=== PATIENT | male | born 1950 | race Caucasian/White ===

== ENCOUNTER 2018-05-29 06:44 | Day surgery (SDC) | payer MEDICARE, OTHER, SELFPAY ==
[2018-05-17 09:32] VITALS: BMI 27.1
[2018-05-29 07:02] VITALS: BP 115/81; PULSE 54; RESP 16; TEMP 36.3; O2SAT 100; BMI 23.1
--- NOTE | 2018-05-29 08:00 | COLBX_PTH ---
PATIENT: KIM BLAKE LOC: EN U#:[id number] AGE/SX: 67/M ROOM: RE05/29/[address]: Dr. Don Parish MD : 1950 BED: DIS: 05/29/2018 SPEC #: [id number] RECD: 05/29/18 08:30 STATUS: NACHO MAGGY #: [id number] SAMARIA: 05/29/18 08:[address]: Don Parish DEPT: SURGICAL PATHOLOGY RECD BY: Yaron Dolan ENTERED: 05/29/18 09:57 SP TYPE: COLON BX OTHR DR: [facility] Tissues: A - Descending colon B - Sigmoid colon biopsy Procedures: Surgery Specimen Level IV HEADER OPERATION: Colonoscopy (MAC) PRE-OP DIAGNOSIS: Personal history of colonic polyps TISSUE SUBMITTED: A - Biopsy of descending colon polyp, B - Biopsy of sigmoid colon polyp MICROSCOPIC DIAGNOSIS A. Descending colon polyp, biopsy: Tubular adenoma. B. Sigmoid colon polyp, biopsy: Tubular adenoma. AM:karina 05/30/18 MICROSCOPIC DESCRIPTION Slides are reviewed. GROSS DESCRIPTION A - Received in fixative is one container labeled with the patient's name and designated biopsy of descending colon polyp. The specimen consists of two irregular fragments of light goodman soft tissue that in aggregate measure 0.8 x 0.4 x 0.1 cm. The specimen is totally submitted in one cassette. B - Received in fixative is one container labeled with the patient's name and designated biopsy of sigmoid colon polyp. The specimen consists of one irregular fragment of light goodman soft tissue that measures 0.3 x 0.3 x 0.1 cm. The specimen is totally submitted in one cassette. / SJ:karina 05/29/18 TC:5 CPT: 03691 x2
[2018-05-29 08:15] VITALS: BP 115/81; BP 88/61; PULSE 57; RESP 16; TEMP 36.4; O2SAT 100
--- NOTE | 2018-05-29 08:15 | OP.ENDO_ITS ---
05/29/2018 [facility] Re : Colonoscopy procedure for Clay Malik [facility] This procedure was performed on Tuesday, May 29, 2018. My impressions and recommendations are as follows: Impressions : - One 5 mm polyp in the sigmoid colon, removed with a jumbo cold forceps. Resected and retrieved. - Two 4 to 6 mm polyps in the descending colon, removed with a jumbo cold forceps. Resected and retrieved. - The examination was otherwise normal. Recommendations : - Discharge patient to home. - Resume previous diet. - Continue present medications. - Await pathology results. - Repeat colonoscopy in 3 years for surveillance. - Return to my office in 1 week. My findings are described in the full procedure note, which is enclosed. If I can be of further assistance, please feel free to contact me at Doctor phone number(s): , Fax: [phone], Work: . Sincerely, MD Don Abbott MD 05/29/2018 8:15:18 AM This report has been signed electronically.
[2018-05-29 08:20] VITALS: BP 115/81; BP 88/66; PULSE 57; RESP 16; O2SAT 99
[2018-05-29 08:25] VITALS: BP 102/76; BP 115/81; PULSE 58; RESP 16; O2SAT 100
[2018-05-29 08:30] VITALS: BP 100/76; BP 115/81; PULSE 58; RESP 16; TEMP 36.9; O2SAT 100
[2018-05-29 09:15] VITALS: BP 115/81
== END 2018-05-29 09:16 | disposition home or self-care (01) ==
LOC: EN 06:45 → AC 06:46
PROVIDERS: Referring Provider Surgery; Visit Provider Surgery
PROC: 0DJD8ZZ Inspection of Lower Intestinal Tract, Via Natural or Artificial Opening Endoscopic (ICD-10-PCS; CPT 45378; principal; 2018-05-29 07:55)
DX: Z12.11 Encounter for screening for malignant neoplasm of colon (principal); K63.5 Polyp of colon; I10 Essential (primary) hypertension; I48.91 Unspecified atrial fibrillation; E78.00 Pure hypercholesterolemia, unspecified; M19.90 Unspecified osteoarthritis, unspecified site; Z79.01 Long term (current) use of anticoagulants; Z79.899 Other long term (current) drug therapy; Z86.010 Personal history of colon polyps; Z87.891 Personal history of nicotine dependence
CPT/HCPCS: 45380; 88305; J7120; J1610

== ENCOUNTER 2019-11-15 08:52 | Emergency (ER) | payer MEDICARE, OTHER, SELFPAY ==
[2019-11-15 08:53] VITALS: BP 133/86; PULSE 59; RESP 17; TEMP 36.1; O2SAT 99; BMI 25.4
--- NOTE | 2019-11-15 09:08 | CT_ITS ---
STUDY: CT BRAIN WITHOUT CONTRAST REASON FOR EXAM: Male, 69 years old. PT STATED DIZZINESS TODAY, HX HTN RADIATION DOSAGE (If Supplied By Facility): CTDIvol = ( 44.99 ) mGy, DLP = ( 812.98 ) mGycm TECHNIQUE: Transaxial CT imaging of the brain was performed without administration of intravenous contrast material. Individualized dose optimization techniques were used for this CT. COMPARISON: No relevant priors. FINDINGS: Normal soft tissue structures. Normal calvarium. Normal size ventricles and extra-axial spaces for the patient''s age. Normal white matter tracts of the cerebral hemispheres. Normal basal ganglia and thalami. Normal brainstem. Normal cerebellum. There is no intracranial hemorrhage. There are no findings of an acute ischemic infarction. Normal visualized paranasal sinuses. CT/Brain/Head without Contrast IMPRESSION: Normal unenhanced CT scan of the brain. Electronically Signed: Kit Avila MD at 9:58 EDT Tel , Service support ,
--- NOTE | 2019-11-15 09:08 | EKG12_ITS ---
Test Reason : DIZZINESS Blood Pressure : / mmHG Vent. Rate : 048 BPM Atrial Rate : 048 BPM P-R Int : 170 ms QRS Dur : 084 ms QT Int : 446 ms P-R-T Axes : 054 -19 008 degrees QTc Int : 398 ms Sinus bradycardia Leftward axis Inferior PR, age undetermined, cannot be excluded Abnormal ECG Confirmed by DREW IBARRA, JESUS ([id number]), greeting card editor CHEYENNE RIVAS ([id number]) on 11/17/2019 8:58:29 AM Referred By: Confirmed By:JESUS RUSSELL MD
--- NOTE | 2019-11-15 09:09 | RAD_ITS ---
STUDY: X-RAY CHEST REASON FOR EXAM: Male, 69 years old. light-headed/dizziness since this morning TECHNIQUE: Single AP portable view of the chest. COMPARISON: None. FINDINGS: The lungs are clear and expanded. There is no demonstrated pleural abnormality. Normal size heart. Normal mediastinum and kurtis. Normal visualized pulmonary arteries. Normal visualized aortic arch and descending thoracic aorta. Normal visualized thoracic spine. Normal visualized ribs, clavicles, and shoulders. There is no demonstrated abnormality of the visualized soft tissue structures of the upper abdomen. RAD/Chest 1 View (Portable) IMPRESSION: Normal x-ray examination of the chest. Electronically Signed: Kit Avila MD at 9:54 EDT Tel , Service support ,
[2019-11-15 09:10] VITALS: BP 113/80; BP 121/84; BP 124/80; PULSE 54; PULSE 55; PULSE 57
--- NOTE | 2019-11-15 09:10 | ED.DCSUM_ITS ---
History of Present Illness Chief Complaint: Dizziness Narrative: Patient presenting for evaluation secondary to dizziness. Patient states that this morning he woke up and he leaned over to turn off a fan on the floor and he had a sudden onset of dizziness. Patient does describe this as a lightheadedness as if he is going to pass out, but does state that it is worse with position change of his head if he looks up or leans forward. Patient denies any chest pain or palpitations associated with this. No shortness of breath associated with this. He denies any visual changes numbness weakness speech difficulty or vision changes. No headaches. No recent head injuries. Patient tells me that he had a prior similar episode in the past, and [facility] Miguel maneuver. He denies any tinnitus associated with this. He denies any recent infectious signs or symptoms such as fever cough nausea vomiting diarrhea dysuria hematuria melena or hematochezia. Review of systems otherwise negative. Past Medical History - Allergies and Home Meds Allergies/Adverse Reactions: Allergies No Known Allergies Allergy (Verified 11/15/19 08:53) Primary Care Physician: Jacey Miller NP-C [Primary Care Provider] - Prior records reviewed: Yes Past Medical History: - - Atrial fibrillation, hypertension, hyperlipidemia Lives: Spouse/ Significant Other Smoking Status: Never smoker Alcohol: None Drugs: None Review of Systems General: Reports: - - Dizziness Eyes: Denies: Visual changes - bilaterally, Diplopia ENT: Denies: Rhinorrhea, Sore throat Cardiovascular: Denies: Chest pain, Palpitations Respiratory: Denies: Dyspnea, Cough, Dyspnea on exertion Gastrointestinal: Denies: Abdominal pain, Nausea, Vomiting, Diarrhea, Melena, Hematochezia Genitourinary: Denies: Dysuria, Hematuria, Frequency Musculoskeletal: Denies: Back pain, Extremity Pain Skin: Denies: Rash, Wounds Neurological: Denies: Headache, Weakness, Numbness Physical Exam Vital Signs/Narrative: Vital Signs Temp Pulse Resp BP Pulse Ox 11/15/19 08:53 96.9 F L 59 L 17 133/86 H 99 Inital Vital Signs reviewed: Yes General: Well nourished, Well developed, No Acute Distress Head: Normocephalic, Atraumatic Eyes: Perrl, EOMI, - - No reproducible nystagmus ENT: Moist mucous membranes, No rhinorrhea Neck: Supple, Nontender, - - No carotid bruits are noted Cardiovascular: Regular rate, Regular rhythm, No murmurs, - - 2+ radial pulses bilaterally symmetric Respiratory: No distress, CTA bilaterally, Chest nontender Abdomen: Soft, Nontender, Nondistended, Normal bowel sounds Back: Nontender, Normal Inspection Extremities: Nontender, No edema Skin: Normal color, No rash Neurological: Alert, Oriented x3, Cranial nerves II-XII grossly intact, Normal Strength, Normal Sensation, - - Normal cerebellar testing, negative Romberg. Patient does not have reproducibility of symptoms with Kailey-Hallpike, but does have reproduction of symptoms when he goes from laying to sitting without any evidence of nystagmus Psychological: Normal affect, Normal Mood Diagnostic/Tx/Re-eval Clinical Impression(s) from Imaging Studies Brain CT 11/15/19 09:08 IMPRESSION: Normal unenhanced CT scan of the brain. Electronically Signed: Kit Avila MD at 9:58 EDT Tel , Service support , Chest X-Ray 11/15/19 09:09 IMPRESSION: Normal x-ray examination of the chest. Electronically Signed: Kit Avila MD at 9:54 EDT Tel , Service support , Laboratory Data 11/15/19 11/15/19 11/15/19 09:25 09:25 10:10 WBC 5.8 RBC 4.84 Hgb 13.7 Hct 43.6 MCV 90.1 MCH 28.3 MCHC 31.4 L RDW Std Deviation 45.9 H RDW Coeff of Tatiana 14.0 Plt Count 232 MPV 10.0 Immature Gran % (Auto) 0.300 Neut % (Auto) 66.6 Lymph % (Auto) 18.4 L [place] % (Auto) 9.0 Eos % (Auto) 4.7 Baso % (Auto) 1.0 Absolute Neuts (auto) 3.8 Absolute Lymphs (auto) 1.06 Nucleated RBC % 0 Sodium 140 Potassium 4.0 Chloride 107 Carbon Dioxide 31.0 Anion Gap 2 L BUN 24 H Creatinine 1.29 Estim Creat Clear Calc 55.80 Est GFR (MDRD) Af Amer 71 Est GFR (MDRD) Non-Af 59 L BUN/Creatinine Ratio 18.6 Glucose 117 H Calcium 9.3 Troponin I < 0.015 Urine Color Yellow Urine Clarity Clear Urine pH 7.0 Ur Specific [place] 1.010 Urine Protein Negative Urine Glucose (UA) Normal Urine Ketones Negative Urine Occult Blood Negative Urine Nitrite Negative Urine Bilirubin Negative Urine Urobilinogen Normal Ur Leukocyte Esterase Negative - EKG Initial EKG Interpretation: - - Sinus bradycardia with a ventricular rate of 48. Normal ND and QTc intervals. Inferior Q waves of unknown chronicity are noted, T wave flattening is also noted inferiorly of unknown chronicity. - Medical Decision Making Patient presented secondary to feeling of dizziness. Patient was able to somewhat characterize this for me, and it really seems more like an orthostatic/presyncopal type dizziness rather than a vertiginous type dizziness. This was supported by the fact that the patient had reproduction in symptoms when going from lying to sitting. His orthostatics were negative. CBC chemistry troponin unremarkable, urinalysis shows no signs of infection. Chest x-ray by my personal interpretation as well as radiology shows no acute pathology. CT brain per radiology shows no acute process. Patient was able to ambulate in the emergency department without symptoms or instability. He has no signs of ataxia. Patient is noted to have bradycardia with heart rates in the 50s occasionally in the high 40s. Patient tells me that ever since he has been placed on beta-blockers for his A. fib, his resting heart rate typically is in the 50s but he recently has lost weight and wonders if he does not need his medications titrated. I had a discussion with the patient about his safety with ambulation, he does feel safe going home at this time, and giving that his typical resting heart rate is in the 50s I do not feel that he requires a dmission for symptomatic bradycardia. I [facility] that [facility] and I did give him signs and symptoms for which to return to the emergency department. ED Disposition - Plan for ED Patient: Disposition: Home or Assisted Living Diagnosis: Orthostasis, Bradycardia Instructions: ED Bradycardia, ED Hypotension Orthostatic Referrals: Jacey Miller NP-[place] [Primary Care Provider] - As soon as possible
[2019-11-15 09:42] LABS: Absolute Lymphocyte Count 1.06 X10^3/uL (0.83-4.51); Absolute Neutrophil Count 3.8 X10^3/uL (2.0-7.7); Basophil# 0.06 X10^3/uL; Eosinophil# 0.27 X10^3/uL; Eosinophils% 4.7 % (0-5); Hematocrit 43.6 % (40-54); Hemoglobin 13.7 g/dL (13.0-16.5); Lymphocyte # 1.06 X10^3/ul (4.0); Lymphocyte % 18.4 % (19-41); Mean Corp Hgb Conc 31.4 g/dL (32-36); Mean Corpuscular Hgb 28.3 pg (27.0-32.0); Mean Corpuscular Volume 90.1 fL (80-94); Monocyte# 0.52 X10^3/uL; NRBC Flagged by Analyzer 0 % (0-5); Neutrophil # 3.84 X10^3/uL (2.7-7.7); Neutrophil % 66.6 % (47-70); Platelet Count 232 K/mm3 (150-450); RBC Distribution Width SD 45.9 fl (35.1-43.9); Red Blood Count 4.84 M/mm3 (4.6-6.2); White Blood Count 5.8 K/mm3 (4.4-11.0)
[2019-11-15 09:48] LABS: Anion Gap 2 (5-15); BUN 24 mg/dL (7-18); BUN/Creat Ratio 18.6 RATIO (10-20); Calcium,Total 9.3 mg/dL (8.5-10.1); Chloride 107 mmol/L (98-107); Creatinine, Serum 1.29 mg/dL (0.70-1.30); EST Glomerular Filtration Rate 59 mL/min (>60); Est Glom Filt Rate - Afr Amer 71 mL/min (>60); Glucose 117 mg/dL (74-106); Sodium Level 140 mmol/L (136-145)
[2019-11-15 10:00] VITALS: BP 121/85; PULSE 50; RESP 16
[2019-11-15 10:15] LABS: Bacteria 0 SEEN /hpf (None Seen); Mucous, Urine 0 SEEN /hpf (<or=2+); Red Blood Cells-Urine 0 SEEN /hpf (0-5); Squamous Epithelial Cells - UA 0 SEEN /hpf (0-5); White Blood Cells 0 SEEN /hpf (0-5)
[2019-11-15 10:21] LABS: Color, Urine Yellow (Yellow); Glucose, Dipstick Normal (Normal); Ketone-Dipstick Negative (Negative); Leukocyte Esterase-Dipstick Negative /ul (Negative); Nitrite-Dipstick Negative (Negative); Occult Blood-Urine Negative /ul (Negative); Protein-Dipstick Negative (Negative); Urine Bilirubin Dipstick Negative (Negative); Urine Clarity Clear (Clear); Urine Urobilinogen Normal (Normal)
[2019-11-15 10:58] VITALS: BP 116/94; PULSE 53; RESP 16; O2SAT 99
--- NOTE | 2019-11-15 10:58 | ED.RN ---
IV DC'ED, CATHETER INTACT, SMALL GAUZE DRESSING PLACED. DISCHARGE INSTRUCTIONS GIVEN TO AND REVIEWED WITH PATIENT, PATIENT DENIES QUESTIONS OR CONCERNS AND VOICES UNDERSTANDING OF DISCHARGE INSTRUCTIONS. PT TO PRIVATE VEHICLE VIA WHEELCHAIR.
== END 2019-11-15 10:59 | disposition home or self-care (01) ==
PROVIDERS: Emergency Provider Emergency Medicine
DX: R42 Dizziness and giddiness (principal); R00.1 Bradycardia, unspecified; E78.5 Hyperlipidemia, unspecified; I10 Essential (primary) hypertension; I48.91 Unspecified atrial fibrillation; Z79.01 Long term (current) use of anticoagulants; Z79.899 Other long term (current) drug therapy
CPT/HCPCS: 70450; 71045; 80048; 81001; 84484; 85025; 93005; 99284; A4216

== ENCOUNTER 2022-04-07 06:47 | Emergency (ER) | payer MEDICARE, OTHER, SELFPAY ==
[2022-04-07 06:49] VITALS: BP 146/96; PULSE 98; RESP 18; TEMP 35.8; BMI 25.3
--- NOTE | 2022-04-07 07:16 | ED.VIS.GI ---
HPI HPI - GI History of Present Illness Chief Complaint: Abd Pain Informant: patient Abdominal Pain/Flank Pain Onset: Today Context: Sudden Onset Timing: Continuous Quality: Dull (Pressure) Location: - (Right inguinal area) Worsened by: - (Standing) Relieved by: - (Laying down) Nausea/Vomiting/Emesis GI Symptom: Negative for Nausea or Vomiting Diarrhea/Melena/Hematochezia GI Symptom: Negative for Diarrhea, Melena or Hematochezia Associated Symptoms Associated Symptoms: Negative for Dysuria, Frequency or Hematuria Narrative Narrative: Patient presents with right inguinal pain that began this morning when he woke up. Patient states he noted a lump in his right inguinal area when he woke up. Patient states is similar to the lump he had with his left inguinal hernia. Patient states he had his left inguinal hernia repaired several years ago. Patient describes his pain as a dull pressure. Patient states it is worse with standing and better when he lays down. Patient denies any nausea or vomiting. Patient denies any diarrhea, melena, or hematochezia. Patient denies any urinary complaints. [facility] Medical History Afib History of colon polyps HTN (hypertension) Hyperlipidemia Home Medications Glucosamin Chondroitin-Triple 1 tab PO DAILY 09/29/16 [History Last Taken Unknown] Vitamin C 1000 Mg 1,000 mg PO DAILY 09/29/16 [History Last Taken Unknown] atorvastatin 80 mg tablet 40 mg PO DAILY CHOLEST 09/29/16 [History Last Taken Unknown] lisinopril 20 mg-hydrochlorothiazide 12.5 mg tablet 1 ea PO BID 09/29/16 [History Last Taken Unknown] metoprolol tartrate 25 mg tablet 25 mg PO BID 09/29/16 [History Last Taken 05/29/18 04:15 25 MG] apixaban 5 mg tablet (Eliquis) 5 mg PO BID 05/17/18 [History Last Taken 05/23/18] ergocalciferol (vitamin D2) 1,250 mcg (50,000 unit) capsule 50,000 unit PO QMONTH 05/27/18 [History Last Taken Unknown] Allergy/AdvReac Type Severity Reaction Status Date / Time No Known Allergies Allergy Verified 04/07/22 06:53 Family History Brother Heart disease Surgical History H/O retinal detachment h/o surgery from shrapnel history c-scope (~05/29/18) S/P left inguinal hernia repair Status post cataract surgery Social History Smoking Status: Never smoker alcohol intake: never ROS ROS ED Constitutional Constitutional ED: Denies chills or fever(s) Eyes Eyes: Denies blurry vision or change in vision ENT ENT ED: Reports rhinorrhea; Denies sore throat Cardiovascular Cardiovascular: Denies chest pain or palpitations Respiratory/Chest Respiratory/Chest: Denies cough or dyspnea Gastrointestinal Gastrointestinal: Reports abdominal pain; Denies nausea or vomiting Genitourinary Genitourinary ED: Denies dysuria or hematuria Musculoskeletal Musculoskeletal: Denies back pain or neck pain Integumentary Denies abscess or rash Neurologic Neurologic: Denies headache(s) or weakness Allergic/Immunologic Allergic/Immunologic ED: Denies mouth swelling or urticaria EXAM Physical Exam Const Vital Signs: 04/07/22 06:49 Temperature 96.5 F L Temperature Source Temporal Pulse Rate 98 Respiratory Rate 18 Blood Pressure 146/96 H Blood Pressure Mean 112 Positive well nourished and well developed General Appearance ED: well developed HEENT Reports moist mucous membranes Neck supple and no JVD Resp normal respiratory effort and clear to auscultation bilaterally Cardio regular rate, regular rhythm and no murmurs GI normal to inspection, nondistended, normoactive bowel sounds Palpation: soft, tender other (Mild right inguinal tenderness) and hernia indirect inguinal right; Negative for guarding or rebound tenderness present Extremity normal to inspection General Extremety ED: Negative for edema or tenderness General Extremity: Negative for edema Neuro oriented x3, CN's II-XII intact bilaterally and no sensory deficits noted Sensorium / Orientation: alert Motor Exam: strength 5/5 throughout Psych mental status grossly normal Skin no rashes or lesions noted MDM MDM MDM Narrative Medical decision making narrative: CBC was within normal limits. Comprehensive metabolic profile was within normal limits. Urinalysis does not show any evidence of hematuria or urinary tract infection. CT scan of the abdomen pelvis was obtained. There is a right inguinal hernia containing fat and a loop of small bowel. There is no evidence of any obstruction or inflammation. Patient was advised of his findings. Patient was instructed to take Tylenol or ibuprofen as needed for pain. Patient was given referral to general surgery. Patient was instructed to follow-up with his primary care physician in 5 to 7 days. Patient understood and was agreeable with the plan. All questions were answered. Lab Data Attestation: I reviewed the patient's lab results. Labs: Laboratory Results - last 24 hr 04/07/22 04/07/22 04/07/22 07:03 07:03 07:45 WBC 5.9 RBC 4.56 L Hgb 13.0 Hct 40.8 MCV 89.5 MCH 28.5 MCHC 31.9 L RDW Std Deviation 45.0 H RDW Coeff of Tatiana 13.8 Plt Count 229 MPV 10.3 Immature Gran % (Auto) 0.300 Neut % (Auto) 71.4 H Lymph % (Auto) 16.2 L [place] % (Auto) 8.4 Eos % (Auto) 2.9 Baso % (Auto) 0.8 Absolute Neuts (auto) 4.2 Absolute Lymphs (auto) 0.96 Nucleated RBC % 0 Sodium 140 Potassium 3.8 Chloride 108 H Carbon Dioxide 27.0 Anion Gap 5 BUN 21 H Creatinine 1.22 Estim Creat Clear Calc 59.15 Est GFR (MDRD) Af Amer 75 Est GFR (MDRD) Non-Af 62 BUN/Creatinine Ratio 17.2 Glucose 108 H Calcium 8.9 Total Bilirubin 1.20 H AST 12 L ALT 20 Alkaline Phosphatase 71 Total Protein 6.4 Albumin 3.4 Globulin 3.0 Albumin/Globulin Ratio 1.1 Urine Color Yellow Urine Clarity Sl. Cloudy Urine pH 7.0 Ur Specific [place] 1.010 Urine Protein Negative Urine Glucose (UA) Normal Urine Ketones Negative Urine Occult Blood Negative Urine Nitrite Negative Urine Bilirubin Negative Urine Urobilinogen Normal Ur Leukocyte Esterase Negative Urine RBC 0 SEEN Urine WBC 0 SEEN Ur Squamous Epith Cells 0 SEEN Urine Bacteria 0 SEEN Urine Mucus 0 SEEN Radiography Diagnostic Testing: Clinical Impression(s) from Imaging Studies Abdomen/Pelvis CT 04/07/22 07:20 IMPRESSION: Right inguinal hernia containing fat and a small bowel loop, no evidence of ileus, obstruction, or acute inflammation Retained stool throughout the colon with scattered diverticula, no CT evidence of acute diverticulitis. No suspicious solid organ abnormality No free intraperitoneal fluid, air, or suspicious adenopathy, normal appendix visualized Electronically Signed: Ean Olvera MD at 8:26 EST , Discharge Plan Triage Chief Complaint: Abd Pain ED Provider: Behzad Meyers Dx/Rx/DC Orders Clinical Impression: Hernia, inguinal, right, Hypertension Instructions: ED Hernia (Adult) Prescriptions: No Action Eliquis 5 mg tablet 5 mg PO BID atorvastatin 80 MG tablet 40 mg PO DAILY lisinopril-hydrochlorothiazide 1 EACH tablet 1 ea PO BID metoprolol tartrate 25 MG tablet 25 mg PO BID Glucosamin Chondroitin-Triple 1 TAB 1 tab PO DAILY Vitamin C 1000 Mg 1,000 MG 1,000 mg PO DAILY ergocalciferol (vitamin D2) 50,000 UNIT capsule 50,000 unit PO QMONTH Primary Care Provider: [facility] Referrals: Chava Arambula MD [Med Staff - Active Staff] - 5-7 Days NOT,DEFINED [Non-Staff] - [facility] [[facility] Provider] - 5-7 Days Disposition Disposition: Home, Self Care
--- NOTE | 2022-04-07 07:20 | CT_ITS ---
STUDY: CT ABDOMEN AND PELVIS WITHOUT CONTRAST REASON FOR EXAM: Male, 71 years old. Right inguinal pain RADIATION DOSAGE (If Supplied By Facility): CTDIvol = ( 11.13 ) mGy, DLP = ( 661.85 ) mGycm TECHNIQUE: Transaxial images were obtained from the dome of the diaphragm to the symphysis pubis without oral contrast, and without intravenous contrast. Sagittal and coronal images were reconstructed. Individualized dose optimization techniques were used for this CT. COMPARISON: None. FINDINGS: The visualized lung bases are unremarkable. The visualized portions of the heart are within normal limits. Normal liver. Normal gallbladder and extrahepatic biliary system. Normal spleen. Normal pancreas. Normal bilateral adrenal glands. Normal right kidney. Normal left kidney. Normal visualized stomach. Normal small intestine. Retained stool noted throughout the colon, scattered colonic diverticula without CT evidence of acute diverticulitis. The appendix is visualized and appears normal. Appendix seen on coronal recon images 59-63 Normal abdominal aorta. Normal inferior vena cava. Normal retroperitoneum. Normal urinary bladder. There is a right inguinal hernia containing small bowel, but no evidence of ileus obstruction or inflammation. Degenerative bony changes noted throughout the lumbar spine and pelvis CT/Abdomen/Pelvis without Cont IMPRESSION: Right inguinal hernia containing fat and a small bowel loop, no evidence of ileus, obstruction, or acute inflammation Retained stool throughout the colon with scattered diverticula, no CT evidence of acute diverticulitis. No suspicious solid organ abnormality No free intraperitoneal fluid, air, or suspicious adenopathy, normal appendix visualized Electronically Signed: Ean Olvera MD at 8:26 EST ,
[2022-04-07 07:46] LABS: Absolute Lymphocyte Count 0.96 X10^3/uL (0.83-4.51); Absolute Neutrophil Count 4.2 X10^3/uL (2.0-7.7); Basophil# 0.05 X10^3/uL; Basophil% 0.8 % (0-1); Eosinophil# 0.17 X10^3/uL; Eosinophils% 2.9 % (0-5); Hematocrit 40.8 % (40-54); Lymphocyte # 0.96 X10^3/ul (0.83-4.51); Lymphocyte % 16.2 % (19-41); Mean Corp Hgb Conc 31.9 g/dL (32-36); Mean Corpuscular Hgb 28.5 pg (27.0-32.0); Mean Corpuscular Volume 89.5 fL (80-94); Mean Platelet Vol. 10.3 fl (6.2-12.0); Monocyte% 8.4 % (0-10); NRBC Flagged by Analyzer 0 % (0-5); Neutrophil # 4.23 X10^3/uL (2.7-7.7); Neutrophil % 71.4 % (47-70); Platelet Count 229 K/mm3 (150-450); RBC Distribution Width CV 13.8 % (11.6-14.6); Red Blood Count 4.56 M/mm3 (4.6-6.2); White Blood Count 5.9 K/mm3 (4.4-11.0)
[2022-04-07 07:52] LABS: Bacteria 0 SEEN /hpf (None Seen); Mucous, Urine 0 SEEN /hpf (<or=2+); Red Blood Cells-Urine 0 SEEN /hpf (0-5); Squamous Epithelial Cells - UA 0 SEEN /hpf (0-5); White Blood Cells 0 SEEN /hpf (0-5)
[2022-04-07 08:04] LABS: ALB/GLOB Ratio 1.1 RATIO (0.9-2.4); AST(SGOT) 12 U/L (15-37); Alanine Aminotransfer ALT/SGPT 20 U/L (16-61); Albumin, Serum 3.4 g/dL (3.2-5.0); Alkaline Phosphatase 71 U/L (45-117); Anion Gap 5 (5-15); BUN 21 mg/dL (7-18); BUN/Creat Ratio 17.2 RATIO (10-20); Calcium,Total 8.9 mg/dL (8.5-10.1); Chloride 108 mmol/L (98-107); Creatinine, Serum 1.22 mg/dL (0.70-1.30); EST Glomerular Filtration Rate 62 mL/min (>60); Est Glom Filt Rate - Afr Amer 75 mL/min (>60); Estimated Creatinine Clearance 59.15 ml/min; Glucose 108 mg/dL (74-106); Potassium 3.8 mmol/L (3.5-5.1); Protein, Total 6.4 g/dL (6.4-8.2); Sodium Level 140 mmol/L (136-145)
[2022-04-07 08:19] LABS: Color, Urine Yellow (Yellow); Glucose, Dipstick Normal (Normal); Ketone-Dipstick Negative (Negative); Leukocyte Esterase-Dipstick Negative /ul (Negative); Nitrite-Dipstick Negative (Negative); Occult Blood-Urine Negative /ul (Negative); Protein-Dipstick Negative (Negative); Urine Bilirubin Dipstick Negative (Negative); Urine Clarity Sl. Cloudy (Clear); Urine Urobilinogen Normal (Normal)
== END 2022-04-07 09:09 | disposition home or self-care (01) ==
PROVIDERS: Emergency Provider Emergency Medicine; Visit Provider Emergency Medicine
DX: K40.90 Unilateral inguinal hernia, without obstruction or gangrene, not specified as recurrent (principal); E78.5 Hyperlipidemia, unspecified; I10 Essential (primary) hypertension
CPT/HCPCS: 74176; 80053; 81001; 85025; 99283

== ENCOUNTER 2022-04-27 05:47 | Day surgery (SDC) | payer MEDICARE, OTHER, SELFPAY ==
--- NOTE | 2022-04-25 08:57 | EKG12_ITS ---
Test Reason : PRE OP Blood Pressure : / mmHG Vent. Rate : 056 BPM Atrial Rate : 056 BPM P-R Int : 180 ms QRS Dur : 088 ms QT Int : 408 ms P-R-T Axes : 052 -25 017 degrees QTc Int : 393 ms Sinus bradycardia Inferior IA, age undetermined, cannot be excluded Confirmed by DREW IBARRA, JSEUS ([id number]), development editor CHEYENNE RIVAS ([id number]) on 04/26/2022 9:51:13 AM Referred By: Chava Arambula Confirmed By:JESUS RUSSELL MD
[2022-04-27] VITALS (9 sets, daily range): BP systolic 103–139; BP diastolic 79–86; PULSE 57–91; RESP 16–18; TEMP 36.2–36.4; O2SAT 96–100; BMI 25.7
--- NOTE | 2022-04-27 | COLBX_PTH ---
PATIENT: KIM BLAKE LOC: [facility] [place][id number] AGE/SX: 71/M ROOM: RE04/27/[address]: Dr. Chava Arambula MD : 1950 BED: DIS: 04/27/2022 SPEC #: [id number] RECD: 04/27/22 08:06 STATUS: NACHO MAGGY #: [id number] SAMARIA: 04/27/22 00:[address]: Chava Arambula DEPT: SURGICAL PATHOLOGY RECD BY: Blanca Valencia ENTERED: 04/27/22 09:21 SP TYPE: COLON BX OTHR DR: [facility] Tissues: A - Small intestine biopsy B - Liver, NOS Procedures: PAS with Diastase (control) Frozen Section (charge) Trichrome (control) Special Stain Group II PAS Stain (control) Surgery Specimen Level IV Surgery Specimen Level V Retic (control) Iron Stain (control) HEADER OPERATION: Lap robotic inguinal hernia and femoral hernia repair PRE-OP DIAGNOSIS: Right inguinal hernia TISSUE SUBMITTED: A ? Small bowel mesentery, FS, B ? Laparoscopic liver biopsy FROZEN SECTION DIAGNOSIS A. Small bowel mesentery, biopsy: Negative for malignancy. Dense fibrous tissue. SJ:karina 04/27/2022 MICROSCOPIC DIAGNOSIS A. Small bowel mesentery, biopsy: A piece of fibroadipose tissue with underlying smooth muscle tissue. Negative for carcinoma. See comment. B. Liver, wedge biopsy: Consistent with Von Meyenburg complex. Underlying liver parenchymal tissue, no pathologic diagnosis. See microscopic description and comment. SJ:karina 04/28/2022 COMMENT A. The smooth muscle tissue may represent underlying bowel muscular layer. B. Correlation with clinical findings and appropriate follow up are necessary. Case has been reviewed in consultation with Dr. Romero who concurs with the above diagnosis. IDC:AM MICROSCOPIC DESCRIPTION Slides are reviewed. B. The liver parenchymal tissue appears unremarkable and shows liver preserved lobular architecture. Hepatocytes appear unremarkable. Portal tissue does not show significant increased inflammation. No interface inflammation is noted. Iron stain shows absent iron. Reticulin stain appears unremarkable. Trichrome stain does not show significant portal and periportal fibrosis. PAS stain with and without diastase does not show any abnormal accumulation of protein. All stains are performed with appropriate matched controls. GROSS DESCRIPTION A - Received fresh for frozen section diagnosis labeled with the patient's name is a specimen designated small bowel mesentery. The specimen consists of a piece of goodman soft tissue measuring 1.25 x 0.25 x 0.5 cm. The entire specimen is submitted for frozen section diagnosis in one cassette. B - Received in fixative is one container labeled with the patient's name and designated liver biopsy. The specimen consists of a piece of goodman-brown soft tissue measuring 0.9 x 0.5 x 0.3 cm. The specimen is bisected and submitted entirely in one cassette. / SJ:karina 04/27/2022 TC:5 CPT: 11098, 71221, 31227, 77893 x5
[2022-04-27] MEDS: Lactated Ringers 1,000 ML 15 ML IV (06:40)
--- NOTE | 2022-04-27 06:42 | PCM.HP.BLA ---
History and Physical Date of Admission: 04/27/22 Intake Vital Signs ? 04/07/2206:49 04/18/2312:04 Height 5 ft 11 in 5 ft 10 in Weight: 181 lb 14.102 oz 178 lb BMI 25.3 25.5 BP 146/96 H 151/93 H Blood Pressure Location ? Rt brachial Position ? Sitting Respiration 18 18 Pulse 98 ? Temp 96.5 F L ? Temp Source Temporal ? 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 1 tab PO DAILY 09/29/16 [History Confirmed 04/18/22] Vitamin C 1000 Mg 1,000 mg PO DAILY 09/29/16 [History Confirmed 04/18/22] atorvastatin 80 mg tablet 40 mg PO DAILY CHOLEST 09/29/16 [History Confirmed 04/18/22] lisinopril 20 mg-hydrochlorothiazide 12.5 mg tablet 1 ea PO BID 09/29/16 [History Confirmed 04/18/22] metoprolol tartrate 25 mg tablet 25 mg PO BID 09/29/16 [History Confirmed 04/18/22] apixaban 5 mg tablet (Eliquis) 5 mg PO BID 05/17/18 [History Confirmed 04/18/22] ergocalciferol (vitamin D2) 1,250 mcg (50,000 unit) capsule 50,000 unit PO QMONTH 05/27/18 [History Confirmed 04/18/22] PFSH Medical History? Afib History of colon polyps HTN (hypertension) Hyperlipidemia Surgical History? H/O retinal detachment h/o surgery from shrapnel history c-scope (~05/29/18) S/P left inguinal hernia repair Status post cataract surgery Family History? Brother Heart disease Social History? Smoking Status:? Never smoker alcohol intake:? never HPI HPI HPI: Patient is a 71-year-old male here with right groin hernia.? Patient notes that he has been having this hernia for years and he had to have an emergency hernia operation on his left groin after incarceration.? Patient reports that the bulge goes away with lying down.? He denies nausea or vomiting.? He denies fevers or chills. ROS General General: No weight change, appetite, fatigue, colon cancer, breast cancer or weakness HEENT HEENT: No difficulty swallowing, eye injury, eye surgery, swollen glands or hoarseness Endo Endocrine: No thyroid disease, diabetes mellitus, thyroid cancer, Hair loss, heat intolerance or cold intolerance Skin Skin: No rash or changing moles Breast Breast: No left breast lump, right breast lump, nipple discharge, breast pain, abnormal mammogram, abnormal US or breast enlargement Musc Musculoskeletal: No back problems, arthritis, rheumatoid arthritis, gout or joint pain Cardio Cardiovascular: Yes atrial fibrillation and high blood pressure; No murmur, pacemaker, heart disease, heart attack, heart stent, palpitations, shortness of breat with exertion or chest pain Psych Psychiatric: No depression, anxiety or hearing voices Resp Respiratory: No shortness of breath, No sleep apnea, No cough, No COPD, No asthma, No emphysema and No wheezing Gastro Gastrointestinal: No abdominal pain, No nausea or vomiting, No diarrhea, No constipation, No blood in stool, No acid reflux, Yes hemorrhoids, No ulcers, No gallbladder problem and No black,tarry stools [place] Hematologic: Yes blood thinners, No blood disorders, No bleeding, No anemia and No blood clots Neuro Neurologic: No system reviewed and no additional complaints, except as documented, No as per HPI, No abnormal gait, No abnormal hearing, No abnormal movements, No abnormal speech, No behavioral changes, No burning sensations, No confusion, No convulsions, No disequilibrium, No dizziness, No localized weakness, No frequent falls, No headache(s), No lack of coordination, No loss of vision, No memory loss, No numbness, No other visual disturbances, No radicular pain, No restless legs, No sensory deficit, No syncope, No tingling, No tremor(s), No weakness and No other Exam Const General: cooperative Orientation: alert and oriented x3 HENMT Head: normal to inspection Neck Neck: normal visual inspection and full ROM Chest Chest palpation & inspection: normal inspection of the chest Resp Effort & Inspection: normal respiratory effort Auscultation: clear to auscultation bilaterally Cardio Rate: regular rate Rhythm: regular rhythm GI Inspection: non-distended Palpation: soft, hernia direct inguinal on the right and nontender Skin General: no rashes or lesions noted Neuro General: patient alert and patient oriented x3 Extrem General: full ROM Psych Appearance: grossly normal Mental Status: mental status grossly normal Assessment and Plan Assessment and Plan (1) Right inguinal hernia: ?Status:?Acute ?Plan: Patient has a reducible right inguinal hernia.? It appears to be a direct defect.? Patient has CT scan showing this right inguinal hernia containing bowel.? He has had an open left inguinal hernia repair in the future.? I discussed robotic assisted laparoscopic right inguinal hernia repair with mesh with the patient in detail.? I discussed mesh placement in detail as well as the risks including balloted to bleeding, infection, injury to other organs such as the bowel, bladder, ureter, blood supply to the testicle or leg.? Patient understands all the risks and is willing to proceed.? I have asked the patient to stop his Eliquis 2 days before surgery. Chava Arambula MD Pager: [facility] [address] [place] [address], [address] [place] [address] Office: I have examined the patient and reviewed the H&P. There are no changes.
[2022-04-27] MEDS: Cefazolin 2 GM in 0.9% Normal Saline 100 ML IV (07:22)
[2022-04-27] MEDS: Bupivacaine Mpf 0.5% 30 ML VIAL (07:45)
--- NOTE | 2022-04-27 09:11 | OP.PCM_ITS ---
Report of Operation Date of Procedure: 04/27/22 Pre-Operative Diagnosis: Right inguinal hernia Post-Operative Diagnosis: 1. Right indirect inguinal hernia 2. Right indirect inguinal hernia 3. Right femoral hernia 4. Nodular area of the small bowel mesentery 5. Liver nodularity Surgery/Procedure Performed:: 1. Robotic assisted laparoscopic right inguinal hernia repair with mesh 2. Biopsy of small bowel mesentery 3. Biopsy of liver Specimen's removed: 1. Small bowel mesenteric nodule 2. Liver biopsy Description of Procedure: Patient was brought back the operating room and general anesthesia was induced. The abdomen was prepped and draped in usual sterile fashion. A midline incision was made superior to the umbilicus and the fascia was grasped and elevated and Veress needle was placed into the abdomen and a drop test was performed. The abdomen was then insufflated to 15 mmHg and the Veress needle was removed. A port was placed. Camera was placed into the abdomen. Next under direct vi sualization an 8 mm port was placed into the right and left lateral abdominal sidewall. The robot was then docked and the patient was placed in Trendelenburg position. The patient appeared to have a nodular area in the mesentery of the small bowel. Using electrocautery scissors and graspers this was dissected free and sent for frozen pathology. It came back as fibrous tissue. Next in the right lower quadrant the peritoneum was incised using cautery scissors. Dissection was carried inferiorly until the hernias were identified. The patient had an indirect hernia and a direct hernia and a femoral hernia. All of these were reduced and dissection was carried posteriorly. Next a ProGrip mesh was placed across all of the defects completely covering them with good overlap. The peritoneum was then reapproximate using a running 3 OV lock suture completely covering the mesh. Next the robot was undocked and the liver was inspected. The liver appeared to have fibrous nodular areas as well. The robot was redox in the other fashion and using electrocautery scissors a biopsy of the liver was obtained and then the liver was cauterized. There is good hemostasis. Next the robot was undocked and the abdomen was desufflated and ports were removed. The incisions were injected local anesthetic and closed with interrupted 4-0 Monocryl suture and Steri-Strips and bandages. Patient josé rated the procedure well and the scrotum was checked at the end the case and contain both testicles. Patient was taken to PACU in stable condition. Grafts/Implants Used: ProGrip mesh in the right inguinal region Admit VTE Documentation VTE Mechan Device Prophylaxis: SCD's
--- NOTE | 2022-04-27 09:20 | DCINST_ITS ---
Discharge Instructions Procedure Hernia Diet Discharge Diet: Light diet - advance as tolerated Activity Discharge Activity: May Not Drive (for 2-3 days or while taking narcotic pain meds.) and May Shower (with the bandage in place 1-2 days after surgery.) Lifting Restrictions: 20 pounds for 6 weeks. Additional Activity Instructions:: Climbing stairs is fine, walking is encouraged. Sitting in bed may be uncomfortable. Sitting up using your lateral muscles (sitting up sideways) is usually more comfortable. Do not drive, work heavy equipment of sign legal documents for 24 hours. If your hernia repair was an inguinal repair, you may have scrotal swelling, an ice pack and/or athletic support can provide more comfort. Pain medications may cause nausea, you should typically eat light foods as you take your pain medications. Pain medications may also cause constipation. If you have difficulty with this, discuss with your doctor. Dressing / Incision Call your doctor if your incision/area has: Continuous Slow Oozing, Sudden Increased Bleeding, Increased Pain/ Swelling, Increased Redness and Foul Smelling Discharge Call your doctor if you observe: Fever of 101 or Higher Suture Line Care: Avoid Pulling/Pushing and Avoid Pinching/Bending Remove Dressing in: 2 days (Remove clear bandages in 2 days, remove Steri-Strips in 7 to 10 days.) Cleanse incision/area with: Soap & Water Follow Up Care Please Follow Up With: Chava Arambula MD When: Please call to schedule 2 week follow up appointment. [phone] Test Results: Test results from this visit will be discussed in further detail at your follow- up appointment, if applicable. Discharge Plan Admission Attending Provider: Chava Arambula Primary Care Provider: [facility] Instructions Additional Instructions / Restrictions: Ibuprofen and Tylenol for pain. Oxycodone for breakthrough pain. Resume Eliquis on Sunday. Discharge Orders/Prescriptions Prescriptions: New oxycodone 5 mg tablet 5 - 10 mg PO Q6H PRN (Reason: pain) 5 Days Qty: 10 0RF No Action Eliquis 5 mg tablet 5 mg PO BID Label Comments: LAST DOSE 04/24 atorvastatin 80 MG tablet 40 mg PO QHS metoprolol tartrate 25 MG tablet 25 mg PO BID Glucosamin Chondroitin-Triple 1 TAB 1 tab PO DAILY Vitamin C 1000 Mg 1,000 MG 1,000 mg PO DAILY lisinopril-hydrochlorothiazide 20-12.5 mg Tablet 1 tab PO BID cholecalciferol (vitamin D3) [Vitamin D3] 50 mcg (2,000 unit) Capsule 50 mcg PO DAILY Referrals / [facility]: [facility] [[facility] - Disposition Disposition (needs filled in before D/C Order can be placed): Home, Self Care
[2022-04-27] MEDS: Acetaminophen 325 MG Tablet 650 MG PO (09:51)
[2022-04-27] MEDS: Tamsulosin HCl 0.4 MG Capsule 0.8 MG PO (14:09)
== END 2022-04-27 16:10 | disposition home or self-care (01) ==
LOC: SDC 05:48 → AC 05:48
PROVIDERS: Referring Provider Surgery; Visit Provider Surgery
PROC: (CPT 49650; principal; 2022-04-27 07:10)
DX: K40.90 Unilateral inguinal hernia, without obstruction or gangrene, not specified as recurrent (principal); I48.91 Unspecified atrial fibrillation; K41.90 Unilateral femoral hernia, without obstruction or gangrene, not specified as recurrent; K76.89 Other specified diseases of liver; I10 Essential (primary) hypertension; E78.5 Hyperlipidemia, unspecified; Z79.01 Long term (current) use of anticoagulants; Z79.899 Other long term (current) drug therapy
CPT/HCPCS: 49650; 49659; 49321; 47379; S2900; 00830; 88305; 88307; 88313; 88331; 93005; J7120; J2405

== ENCOUNTER 2022-08-04 15:37 | Emergency (ER) | payer MEDICARE, OTHER, SELFPAY ==
[2022-08-04 15:37] VITALS: BP 118/86; PULSE 72; RESP 18; TEMP 36.4; O2SAT 99; BMI 26.8
--- NOTE | 2022-08-04 15:57 | EKG12_ITS ---
Test Reason : PALPS Blood Pressure : / mmHG Vent. Rate : 075 BPM Atrial Rate : 075 BPM P-R Int : 188 ms QRS Dur : 088 ms QT Int : 384 ms P-R-T Axes : 044 -24 -02 degrees QTc Int : 428 ms Sinus rhythm with marked sinus arrhythmia Inferior infarct , age undetermined Abnormal ECG Confirmed by RYDER IBARRA, KARLEE ([id number]), slot editor CHEYENNE RIVAS ([id number]) on 08/07/2022 11:32:19 AM Referred By: [facility] Confirmed By:WAYLON SOLER MD
[2022-08-04 16:03] VITALS: BP 115/83; PULSE 89; RESP 19; O2SAT 99
--- NOTE | 2022-08-04 16:11 | EDS_ITS ---
HPI History of Present Illness Chief Complaint: Palpitations Detail of Chief Complaint: No chest pain. History of A-fib. Informant: patient Onset/Context/Timing Associated Symptoms: Positive for Palpitations; Negative for Nausea, Vomiting, Diaphoresis, Dyspnea, Cough, Fever, Lightheadedness or Acid Reflux Narrative Narrative: 72-year-old male history of A-fib on metoprolol and Eliquis. Also hypertension on lisinopril. States for the last week he thinks he has been in and out of A- fib with palpitations. Denies any chest pain. He has not been ill no nausea vomiting or diarrhea. Really no significant shortness of breath. Denies any fever or chills. Prior Similar Symptoms: Yes Recent Illness/Hospitalization: No CVD Risk Factors: Positive for Hypertension; Negative for Diabetes or Smoking PE Risk Factors: Negative for Recent Travel/Surgery, Recent Immobilization, Prior DVT or PE, Cancer or OCP + Smoking + >/=35 TAD Risk Factors: Negative for Marfan's Syndrome PFSH [facility] Medical History Afib Arthritis Cardiology follow-up encounter Excessive bleeding Former smoker High cholesterol History of atrial fibrillation History of colon polyps History of echocardiogram HTN (hypertension) Hyperlipidemia Wears glasses Wears partial dentures Home Medications Glucosamin Chondroitin-Triple 1 tab PO DAILY 09/29/16 [History Last Taken Unknown] Vitamin C 1000 Mg 1,000 mg PO DAILY 09/29/16 [History Last Taken Unknown] atorvastatin 80 mg tablet 40 mg PO QHS CHOLEST 09/29/16 [History Last Taken Unknown] metoprolol tartrate 25 mg tablet 25 mg PO BID 09/29/16 [History Last Taken 04/27/22 05:00] apixaban 5 mg tablet (Eliquis) 5 mg PO BID 05/17/18 [History Last Taken 04/24/22] cholecalciferol (vitamin D3) 50 mcg (2,000 unit) capsule (Vitamin D3) 50 mcg PO DAILY 04/24/22 [History Last Taken Unknown] lisinopril 20 mg-hydrochlorothiazide 12.5 mg tablet 1 tab PO BID 04/24/22 [History Last Taken Unknown] oxycodone 5 mg tablet 5 - 10 mg PO Q6H PRN pain 5 days #10 tabs 04/27/22 [Rx Last Taken Unknown] Allergy/AdvReac Type Severity Reaction Status Date / Time povidone-iodine Allergy Rash Verified 08/04/22 15:40 [From Betadine] Family History Brother Heart disease Surgical History H/O retinal detachment h/o surgery from shrapnel history c-scope (~05/29/18) S/P left inguinal hernia repair S/P right inguinal hernia repair Status post cataract surgery no surgical history Social History Smoking Status: Former smoker alcohol intake: never ROS ROS ED ROS Narrative Denies recent illness. Palpitations. No chest pain. Review of Systems ROS Unobtainable: Denies due to encephalopathy Constitutional Constitutional ED: Denies chills or fever(s) Eyes Eyes: Reports none ENT ENT ED: Denies ear pain Cardiovascular Cardiovascular: Reports as per HPI and palpitations; Denies chest pain or racing heartbeat Respiratory/Chest Respiratory/Chest: Denies cough or dyspnea Gastrointestinal Gastrointestinal: Denies abdominal pain, constipation or diarrhea Genitourinary Genitourinary ED: Denies dysuria or hematuria Musculoskeletal Musculoskeletal: Denies arthralgias Integumentary Denies abscess Neurologic Neurologic: Denies headache(s) Psychiatric Psychiatric: Denies anxiety or depression Endocrine Endocrinology: Denies cold intolerance Hematologic/Lymphatic Hematologic/Lymphatic: Denies easy bleeding Allergic/Immunologic Allergic/Immunologic ED: Denies mouth swelling EXAM Physical Exam Narrative Exam Narrative: 72-year-old male acute distress. Vital signs stable afebrile. Heart rate 72. Pulse ox 98% room air no signs hypoxia. He is in no distress. H EENT exam unremarkable. Neck nontender no JVD. No lymphadenopathy. Lungs clear to auscultation bilaterally. Heart regular rhythm rate about 70 no murmur. Abdomen soft nontender normal bowel sounds no peritoneal signs. Moving all 4 extremities. Calves are nontender that edema or cords. Strong radial pulse. Neurologically is awake alert with no focal motor deficits. On the monitor is a sinus rhythm is not A-fib. He is occasional PACs. Const Vital Signs: 08/04/22 15:37 08/04/22 16:03 08/04/22 16:03 Temperature 97.5 F L Temperature Source Temporal Pulse Rate 72 89 Respiratory Rate 18 19 H Respiratory Effort Blood Pressure 118/86 H 115/83 H Blood Pressure Mean 96 93 Pulse Ox 99 99 Oxygen Delivery Method Room Air Room Air Room Air 08/04/22 16:04 08/04/22 17:00 Temperature Temperature Source Pulse Rate 73 Respiratory Rate 19 H Respiratory Effort Normal Non-Labored Blood Pressure 111/77 Blood Pressure Mean 88 Pulse Ox 97 Oxygen Delivery Method Room Air Positive well nourished and well developed; Negative for obese, cachectic, contractures or unkempt General Appearance ED: well developed and NAD; Negative for unkempt, cachectic, contractures or pallor Nutritional Appearance: Negative for cachectic or obese HEENT Reports moist mucous membranes normocephalic and atraumatic; Negative for trauma or tenderness Eyes PERRL and EOMs intact bilaterally General Eye ED: Negative for pale conjunctiva or scleral icterus Neck no lymphadenopathy, supple and no JVD General: Negative for tenderness Chest Wall inspection of chest normal and palpation of chest normal Chest: Negative for tenderness Resp normal respiratory effort and clear to auscultation bilaterally Effort and Inspection: Negative for respiratory distress Auscultation: Negative for rales, rhonchi or wheezes Cardio regular rate, regular rhythm, S1 normal heart sound, S2 normal heart sound and no murmurs Peripheral Pulses: pulses 2+ throughout GI normal to inspection, nondistended, normoactive bowel sounds, soft to palpation, non-tender, non-distended and no masses Auscultation: Negative for hyperactive bowel sounds Palpation: Negative for splenomegaly Rectal Exam: Negative for heme negative stool Back/Spine no CVA tenderness General Back: Negative for CVA tenderness Cervical Spine: Negative for cervical spine tenderness Extremity normal to inspection General Extremety ED: Negative for edema or pulses abnormal General Extremity: Negative for edema or pulses abnormal Neuro oriented x3 and CN's II-XII intact bilaterally Sensorium / Orientation: awake, alert, oriented to person, oriented to place and oriented to time; Negative for confused, lethargic, stuporous or other Sensory Exam: No sensory level loss detected Motor Exam: strength 5/5 throughout Psych mental status grossly normal Appearance: Negative for unkempt Attitude: No agitated Mood & Affect: Negative for depressed, anxious or tearful Skin no rashes or lesions noted and no wounds General Skin Exam: Negative for jaundice or pallor Rashes: No rashes noted Trauma: Negative for abrasion MDM MDM MDM Narrative Medical decision making narrative: 72-year-old male history of A-fib. Is having intermittent palpitations. Exam benign. He is on a beta-deisy and is also on the blood thinner Eliquis. Screening labs to be obtained. Clinically doing well and he has a sinus rhythm. I suspect he is having intermittent A-fib or PACs. Patient doing well on repeat exam at 6:20 PM. We went over all his test results. He is comfortable being discharged home with outpatient follow-up. Currently his heart rates in the 70s. He remains in a sinus rhythm. He will c ontinue his current medications and follow-up with his database tester. History & Record Review Discussion w/independent historian: Patient and Family Additional record(s) reviewed:: Prior inpatient record, Prior outpatient record, Prior ED visit, Prior labs and No prior records Lab Data Attestation: I reviewed the patient's lab results. Lab results narrative: CBC normal. White count of 5. H&H 13 and 41. Platelets 209. Electrolytes unremarkable. Gap of 3. BUN 29 creatinine 1.26. Glucose 169. Troponin 6. Chest x-ray negative. Labs: Laboratory Results - last 24 hr 08/04/22 08/04/22 16:00 16:00 WBC 5.2 RBC 4.66 Hgb 13.4 Hct 41.3 MCV 88.6 MCH 28.8 MCHC 32.4 RDW Std Deviation 44.4 H RDW Coeff of Tatiana 13.6 Plt Count 209 MPV 10.7 Immature Gran % (Auto) 0.200 Neut % (Auto) 63.8 Lymph % (Auto) 21.6 [place] % (Auto) 9.8 Eos % (Auto) 3.8 Baso % (Auto) 0.8 Absolute Neuts (auto) 3.3 Absolute Lymphs (auto) 1.13 Nucleated RBC % 0 Sodium 139 Potassium 3.7 Chloride 110 H Carbon Dioxide 26.0 Anion Gap 3 L BUN 29 H Creatinine 1.26 Estim Creat Clear Calc 54.72 Est GFR (MDRD) Af Amer 72 Est GFR (MDRD) Non-Af 60 BUN/Creatinine Ratio 23.0 H Glucose 169 H Calcium 8.7 Troponin I High Sens 6 Radiography Chest X-Ray - ED: 1 View, Read by ED Physician, Read by Radiologist, Normal, Heart, Lungs, Mediastinum, Bony Structures, No Acute Disease and Chronic Changes Diagnostic Testing: Clinical Impression(s) from Imaging Studies Chest X-Ray 08/04/22 16:25 IMPRESSION: No radiographic evidence of acute cardiopulmonary disease. Electronically Signed: Jose Campo MD at 16:37 EDT Reading Location ID and State: [facility] / [place] Tel , Service support , Chest x-ray, portable, single view, interpreted by myself and radiologist shows no acute abnormality. Chronic changes. Normal cardiac. No effusions. Rhythm Strip Rhythm Strip: Sinus Rhythm Rate: 75 Ectopy: PAC(s) EKG Initial EKG: Attestation: I personally reviewed and interpreted this EKG as follows: Interpretation: Sinus Rhythm and No Acute Injury Pattern Comments: Sinus rhythm rate of 75 with occasional PACs. No A-fib. No TN or ischemia. Discharge Plan Triage Chief Complaint: Palpitations ED Provider: Yasir Conde Dx/Rx/DC Orders Clinical Impression: Palpitation, History of atrial fibrillation, Chronic anticoagulation Instructions: ED Palpitations Prescriptions: No Action Eliquis 5 mg tablet 5 mg PO BID Label Comments: LAST DOSE 04/24 atorvastatin 80 MG tablet 40 mg PO QHS metoprolol tartrate 25 MG tablet 25 mg PO BID Glucosamin Chondroitin-Triple 1 TAB 1 tab PO DAILY Vitamin C 1000 Mg 1,000 MG 1,000 mg PO DAILY lisinopril-hydrochlorothiazide 20-12.5 mg Tablet 1 tab PO BID cholecalciferol (vitamin D3) [Vitamin D3] 50 mcg (2,000 unit) Capsule 50 mcg PO DAILY oxycodone 5 mg tablet 5 - 10 mg PO Q6H PRN (Reason: pain) 5 Days Qty: 10 0RF [facility] Provider] - 1 Week if not improving Activity Restrictions/Additional Instructions: Follow-up with your primary care provider or your database tester next week if still having significant palpitations. If you are feeling well and do not feeling palpitations just continue your current medications. Return if you are feeling worse. Disposition Disposition: Home, Self Care
--- NOTE | 2022-08-04 16:25 | RAD_ITS ---
EXAM: XR CHEST, 1 VIEW CLINICAL INDICATION: chest pain TECHNIQUE: Frontal view of the chest. COMPARISON: 11/15/2019 FINDINGS: LUNGS AND PLEURAL SPACES: Unremarkable. No consolidation or edema. No pneumothorax. No effusion. HEART: Unremarkable. Cardiac silhouette not enlarged. MEDIASTINUM: Central airways and mediastinal contour are unremarkable. BONES/JOINTS: Unremarkable. SOFT TISSUES: Unremarkable. RAD/Chest 1 View (Portable) IMPRESSION: No radiographic evidence of acute cardiopulmonary disease. Electronically Signed: Jose Campo MD at 16:37 EDT ,
[2022-08-04 16:41] LABS: Anion Gap 3 (5-15); BUN 29 mg/dL (7-18); Calcium,Total 8.7 mg/dL (8.5-10.1); Chloride 110 mmol/L (98-107); Creatinine, Serum 1.26 mg/dL (0.70-1.30); EST Glomerular Filtration Rate 60 mL/min (>60); Est Glom Filt Rate - Afr Amer 72 mL/min (>60); Estimated Creatinine Clearance 54.72 ml/min; Glucose 169 mg/dL (74-106); Potassium 3.7 mmol/L (3.5-5.1); Sodium Level 139 mmol/L (136-145); Troponin-I HS (w/2H Reflex) 6 pg/mL (3.0-78.0)
[2022-08-04 16:44] LABS: Absolute Lymphocyte Count 1.13 X10^3/uL (0.83-4.51); Absolute Neutrophil Count 3.3 X10^3/uL (2.0-7.7); Basophil# 0.04 X10^3/uL; Basophil% 0.8 % (0-1); Eosinophils% 3.8 % (0-5); Hematocrit 41.3 % (40-54); Hemoglobin 13.4 g/dL (13.0-16.5); Lymphocyte # 1.13 X10^3/ul (0.83-4.51); Lymphocyte % 21.6 % (19-41); Mean Corp Hgb Conc 32.4 g/dL (32-36); Mean Corpuscular Hgb 28.8 pg (27.0-32.0); Mean Corpuscular Volume 88.6 fL (80-94); Mean Platelet Vol. 10.7 fl (6.2-12.0); Monocyte# 0.51 X10^3/uL; Monocyte% 9.8 % (0-10); NRBC Flagged by Analyzer 0 % (0-5); Neutrophil # 3.33 X10^3/uL (2.7-7.7); Neutrophil % 63.8 % (47-70); Platelet Count 209 K/mm3 (150-450); RBC Distribution Width CV 13.6 % (11.6-14.6); RBC Distribution Width SD 44.4 fl (35.1-43.9); Red Blood Count 4.66 M/mm3 (4.6-6.2); White Blood Count 5.2 K/mm3 (4.4-11.0)
[2022-08-04 17:00] VITALS: BP 111/77; PULSE 73; RESP 19; O2SAT 97
[2022-08-04 18:16] LABS: Reflex Troponin-HS? (from REC) Y
[2022-08-04 18:28] VITALS: BP 118/63; PULSE 72; RESP 15; O2SAT 96
== END 2022-08-04 18:29 | disposition home or self-care (01) ==
PROVIDERS: Emergency Provider Emergency Medicine; Visit Provider Emergency Medicine
DX: R00.2 Palpitations (principal); I48.91 Unspecified atrial fibrillation; I10 Essential (primary) hypertension; E78.00 Pure hypercholesterolemia, unspecified; Z79.01 Long term (current) use of anticoagulants; Z79.899 Other long term (current) drug therapy; Z87.891 Personal history of nicotine dependence
CPT/HCPCS: 71045; 80048; 84484; 85025; 93005; 99284; A4216

== ENCOUNTER 2023-02-18 16:51 | Emergency (ER) | payer MEDICARE, OTHER, SELFPAY ==
[2023-02-18 16:52] VITALS: BP 123/79; PULSE 67; RESP 14; TEMP 36.4; O2SAT 97; BMI 25.9
[2023-02-18] MEDS: Silver Nitrate (BKC) 1 EACH TOPICAL (17:18)
--- NOTE | 2023-02-18 17:24 | EDS_ITS ---
HPI History of Present Illness Chief Complaint: Wound Check Informant: patient and spouse/S.O. Onset/Context/Timing Onset: Today Narrative Narrative: Patient presents after having bleeding from his varicose vein. He states that he was at home when he developed spontaneous bleeding from his right lower leg. He denies injury. He is currently on Eliquis. Patient states he put a Band-Aid across the wound and then tied his T-shirt around it and the bleeding was controlled before EMS arrived. He still wanted to have it checked. [facility] Medical History Afib Arthritis Cardiology follow-up encounter Excessive bleeding Former smoker High cholesterol History of atrial fibrillation History of colon polyps History of echocardiogram HTN (hypertension) Hyperlipidemia Wears glasses Wears partial dentures Home Medications Glucosamin Chondroitin-Triple 1 tab PO DAILY 09/29/16 [History Last Taken Unknown] Vitamin C 1000 Mg 1,000 mg PO DAILY 09/29/16 [History Last Taken Unknown] atorvastatin 80 mg tablet 40 mg PO QHS CHOLEST 09/29/16 [History Last Taken Unknown] metoprolol tartrate 25 mg tablet 25 mg PO BID 09/29/16 [History Last Taken 04/27/22 05:00] apixaban 5 mg tablet (Eliquis) 5 mg PO BID 05/17/18 [History Last Taken 04/24/22] cholecalciferol (vitamin D3) 50 mcg (2,000 unit) capsule (Vitamin D3) 50 mcg PO DAILY 04/24/22 [History Last Taken Unknown] lisinopril 20 mg-hydrochlorothiazide 12.5 mg tablet 1 tab PO BID 04/24/22 [History Last Taken Unknown] oxycodone 5 mg tablet 5 - 10 mg (1 - 2 x 5 mg) PO Q6H PRN pain 5 days #10 tabs 04/27/22 [Rx Last Taken Unknown] Allergy/AdvReac Type Severity Reaction Status Date / Time povidone-iodine Allergy Rash Verified 08/04/22 15:40 [From Betadine] Family History Brother Heart disease Surgical History H/O retinal detachment h/o surgery from [facility] history c-scope (~05/29/18) S/P left inguinal hernia repair S/P right inguinal hernia repair Status post cataract surgery Social History Smoking Status: Former smoker alcohol intake: never ROS ROS ED Constitutional Constitutional ED: Denies chills or fever(s) ENT ENT ED: Denies rhinorrhea Cardiovascular Cardiovascular: Denies chest pain Respiratory/Chest Respiratory/Chest: Denies cough or dyspnea Gastrointestinal Gastrointestinal: Denies abdominal pain, nausea or vomiting Musculoskeletal Musculoskeletal: Denies back pain or extremity pain Integumentary Reports other Details: Bleeding from varicose vein ; Denies Abrasions or rash Neurologic Neurologic: Denies headache(s) or weakness Psychiatric Psychiatric: Denies anxiety or depression Allergic/Immunologic Allergic/Immunologic ED: Denies lip swelling or urticaria EXAM Physical Exam Const Vital Signs: 02/18/23 16:52 Temperature 97.6 F L Temperature Source Temporal Pulse Rate 67 Respiratory Rate 14 Blood Pressure 123/79 H Blood Pressure Mean 93 Pulse Ox 97 Oxygen Delivery Method Room Air Positive well nourished and well developed General Appearance ED: well developed Eyes EOMs intact bilaterally Chest Wall inspection of chest normal Resp normal respiratory effort and clear to auscultation bilaterally Skin Skin Narrative: Bandage is removed from the right lower leg. There is a small superficial varicose vein with a scab over it. No active bleeding at this time. MDM MDM MDM Narrative Medical decision making narrative: Varicose vein on the right lower extremity is treated with silver nitrate stick. Surgifoam was placed over the wound along with 4 x 4 gauze pads and Demetris wrap applied for pressure. Patient advised to keep this dressing on and keep his legs elevated this evening. Return instructions were provided. Discharge Plan Triage Chief Complaint: Wound Check ED Provider: Ellie Ruff Dx/Rx/DC Orders Clinical Impression: Varicose vein of leg Instructions: ED Varicose Veins Prescriptions: No Action Eliquis 5 mg tablet 5 mg PO BID Patient Comments: LAST DOSE 04/24 atorvastatin 80 MG tablet 40 mg PO QHS metoprolol tartrate 25 MG tablet 25 mg PO BID Glucosamin Chondroitin-Triple 1 TAB 1 tab PO DAILY Vitamin C 1000 Mg 1,000 MG 1,000 mg PO DAILY lisinopril-hydrochlorothiazide 20-12.5 mg Tablet 1 tab PO BID cholecalciferol (vitamin D3) [Vitamin D3] 50 mcg (2,000 unit) Capsule 50 mcg PO DAILY oxycodone 5 mg tablet 5 - 10 mg PO Q6H PRN (Reason: pain) 5 Days Qty: 10 0RF [facility] Referrals: Behzad Shields MD [Med Staff - Active Staff] - [facility] [Primary Care Provider] - Disposition Disposition: Home, Self Care
== END 2023-02-18 17:51 | disposition home or self-care (01) ==
LOC: ED 17:50
PROVIDERS: Emergency Provider Emergency Medicine; Visit Provider Emergency Medicine
DX: I83.891 Varicose veins of right lower extremity with other complications (principal); I10 Essential (primary) hypertension; Z87.891 Personal history of nicotine dependence; E78.00 Pure hypercholesterolemia, unspecified; Z79.01 Long term (current) use of anticoagulants
CPT/HCPCS: 99283

== ENCOUNTER → 2023-03-13 | Outpatient (CLI) | payer MEDICARE, OTHER, SELFPAY ==
--- NOTE | 2023-03-13 07:41 | VDLE_ITS ---
Reason For Study: pain RIGHT LEFT CFV is compressible, spontaneous, phasic, CFV is compressible, spontaneous, phasic, competent and demonstrates normal competent, and demonstrates normal augmentation. augmentation. FV is compressible, spontaneous, phasic, FV is compressible, spontaneous, phasic, competent and demonstrates normal competent and demonstrates normal augmentation. augmentation. POP V is compressible, spontaneous, phasic, POP V is compressible, spontaneous, phasic, competent and demonstrates normal competent and demonstrates normal augmentation. augmentation. T/P Trunk is compressible. T/P Trunk is compressible. PTV is compressible. PTV is compressible. RT PerV is compressible. LT PerV is compressible. SFJ is competent and measures .78 cm. SFJ is INCOMPETENT and measures .74 cm. GSV proximal thigh measures .37 x .4 cm. GSV proximal thigh measures .5 x .48 cm. GSV at knee measures .45 x .44 cm. GSV at knee measures .52 x .54 cm. GSV INCOMPETENT throughout for greater than GSV INCOMPETENT throughout for greater than 0.5 seconds. 0.5 seconds. SSV proximal calf is competent and SSV proximal calf is competent and measures .28 x .28 cm. measures .11 x .12 cm. ASV at knee is INCOMPETENT for greater than 0.5 seconds and measures .17 x .19 cm. Procedure This is a venous duplex using B-mode, color flow and spectral Doppler. Exam performed in department. The exam was diagnostic. VL/Venous Duplex US - Jorge Extrem Interpretation Summary Deep veins of the bilateral lower extremities are patent and compressible segme ntally. There is no evidence of right lower extremity deep vein thrombosis. The bilateral great sap henous veins appear patent and compressible segmentally. Positive for reflux in the right great saphenous vein, accessory saphenous vein . Positive for reflux in the left saphenofemoral junction, great saphenous vein. Ordering Physician: Nicole Shetty Performed By: Carter Figueroa, RVT
== END | disposition home or self-care (01) ==
LOC: CVS 07:41
PROVIDERS: Referring Provider Physician Assistant; Visit Provider Physician Assistant
DX: I83.893 Varicose veins of bilateral lower extremities with other complications (principal)
CPT/HCPCS: 93970